=== PATIENT | female | born 1950 | race Caucasian/White ===

== ENCOUNTER → 2017-08-20 | Outpatient (CLI) | payer BC ==
[~2017-08-20] MED LIST: LOSA50TA36 PO
[2017-08-20 19:07] LABS: BASOPHILS % (AUTO) 0 % (0-10); EOSINOPHILS % (AUTO) 0 % (0-10); HEMATOCRIT 43 % (35-52); HEMOGLOBIN 15.1 G/DL (11.5-16.0); LYMPHOCYTES # (AUTO) 1.3 X 10^3 (1.0-4.0); LYMPHOCYTES % (AUTO) 21 % (12-44); MEAN CORPUSCULAR HEMOGLOBIN 30 PG (25-34); MEAN CORPUSCULAR HGB CONC 35 G/DL (32-36); MEAN CORPUSCULAR VOLUME 87 FL (80-99); MEAN PLATELET VOLUME 12.6 FL (7.4-10.4); MONOCYTES # (AUTO) 0.3 X 10^3 (0.0-1.0); MONOCYTES % (AUTO) 5 % (0-12); NEUTROPHILS # (AUTO) 4.4 X 10^3 (1.8-7.8); NEUTROPHILS % (AUTO) 74 % (42-75); PLATELET COUNT 171 10^3/uL (130-400); RED BLOOD COUNT 4.98 10^6/uL (4.35-5.85); RED CELL DISTRIBUTION WIDTH 13.4 % (10.0-14.5)
[2017-08-20 19:25] LABS: ALANINE AMINOTRANSFERASE 20 U/L (0-55); ALBUMIN 4.7 GM/DL (3.2-4.5); ALKALINE PHOSPHATASE 105 U/L (40-136); BILIRUBIN,TOTAL 0.8 MG/DL (0.1-1.0); BUN/CREATININE RATIO 20; CALCIUM 9.7 MG/DL (8.5-10.1); CARBON DIOXIDE 24 MMOL/L (21-32); CHLORIDE 108 MMOL/L (98-107); CREATININE SERUM 0.71 MG/DL (0.60-1.30); GFR ESTIMATED > 60; GLUCOSE 129 MG/DL (70-105); POTASSIUM 3.6 MMOL/L (3.6-5.0); SODIUM 143 MMOL/L (135-145)
== END ==
LOC: LABNPT 19:01
PROVIDERS: ATTEND Nurse Practitioner Family
DX: R31.9 Hematuria, unspecified (principal); R42 Dizziness and giddiness; R11.0 Nausea; R53.83 Other fatigue; R25.1 Tremor, unspecified
CPT/HCPCS: 80053; 85025; 86141; 87088

== ENCOUNTER 2017-09-01 10:37 | Outpatient (RCR) | payer BC | END 2017-11-03 15:04 | disposition home or self-care (01) | DX: R42 Dizziness and giddiness (principal) ==

== ENCOUNTER 2018-10-31 15:11 | Outpatient (RCR) | payer BC ==
[~2018-10-31 15:11] MED LIST changes: -LOSA50TA36 PO; +LOSA50TA63 PO
== END 2018-12-23 09:06 | disposition home or self-care (01) ==
PROVIDERS: ATTEND Orthopaedic Surgery
DX: Z47.1 Aftercare following joint replacement surgery (principal); Z96.642 Presence of left artificial hip joint

== ENCOUNTER → 2018-12-02 | Outpatient (CLI) | payer BC ==
--- NOTE | 2018-12-02 17:23 | Diagnostic Imaging Report ---
Exam: CT left hip without contrast. Date: December 02, 2018. Indication: 68-year-old female, left hip pain. History of prior hip arthroplasty. Comparison: CT pelvis, December 04, 2008. Technique: Axial CT images at the level of the left hip were obtained without contrast. Coronal and sagittal reformats were obtained and provided. Findings: There is a left total hip prosthesis. The complete inferior aspect of the femoral stem of the prosthesis has not been included in the [id number]-[id number]-[id number] of imaging. This is not proper protocol and the complete extent of the femoral stem should be in the included [id number]. There is no identified periprosthetic lucency adjacent to the imaged portions of the hardware. There is no identified acute fracture. There are mild left sacroiliac degenerative changes. There is severe disc height loss at L5-S1. There are bilateral L5-S1 facet degenerative changes. There is edema within the anterior subcutaneous tissues of the left thigh on axial image 158 and adjacent sequential images. Recommend correlation for recent procedural changes. There is no well-demarcated drainable fluid collection. There is no identified aggressive bone lesion. There is chondrocalcinosis. Impression: 1. No identified acute fracture. 2. No identified complication of the partially imaged left total hip prosthesis. The inferior extent of the femoral stem has not been included in the eplmy-cw-eall of imaging. 3. Subcutaneous edema in the left anterior thigh which is nonspecific. Recommend correlation for potential recent procedural changes. No well-demarcated focal fluid collection. 4. Advanced disc and facet degenerative changes at L5-S1. Dictated by: Dictated on workstation # [id number]
== END ==
LOC: RAD 15:19
PROVIDERS: ATTEND Orthopaedic Surgery
DX: M47.817 Spondylosis without myelopathy or radiculopathy, lumbosacral region (principal); M25.552 Pain in left hip; Z96.642 Presence of left artificial hip joint
CPT/HCPCS: 73700

== ENCOUNTER → 2019-01-17 | Outpatient (CLI) | payer BC | LOC: RAD 09:57 | PROVIDERS: ATTEND Family Medicine | DX: M85.89 Other specified disorders of bone density and structure, multiple sites (principal); Z53.8 Procedure and treatment not carried out for other reasons ==

== ENCOUNTER → 2021-01-02 | Outpatient (CLI) | payer BC ==
[~2021-01-02] MED LIST changes: +CATHETER FLUSH 10 ML SYR IV PRN; +HOLD METFORMIN - RECEIVED CONTRAST 20 ML VIAL IV SCH; +IOHEXOL 350 MG/ML 100 ML (OMNIPAQUE 350) VIAL IV ONE; +NS 100 ML (IVPB) BAG IV ONE
--- NOTE | 2021-01-02 10:46 | Diagnostic Imaging Report ---
EXAMINATION: CT abdomen and pelvis with intravenous contrast. TECHNIQUE: Multiple contiguous axial images were obtained through the abdomen and pelvis after the uneventful administration of intravenous contrast. All CT scans use one or more of the following dose optimizing techniques: automated exposure control, MA and/or KvP adjustment based on patient size and exam type or iterative reconstruction. HISTORY: Melanoma. COMPARISON: None available. FINDINGS: Limited views of the lower thorax are unremarkable. The liver is normal without focal lesion. There is no biliary ductal dilation. Gallbladder is normal. Pancreas is normal. Spleen is normal. Adrenal glands are normal. Simple cysts are seen in left kidney suspicious renal lesions There is no hydronephrosis. Urinary bladder is normal. Visualized bowel is normal in caliber without obstruction or inflammation. No free fluid or air. No abdominal or pelvic lymphadenopathy. Aorta is normal in caliber without aneurysm. There are no suspicious osseous lesions. IMPRESSION: 1. There is a subcutaneous stranding and a small focus of gas in the right thigh which may be related to recent surgery. There have been hip arthroplasties bilaterally. Dictated by: Dictated on workstation # [id number]
== END ==
LOC: RAD 09:03
PROVIDERS: ATTEND Physician Assistant
DX: R11.0 Nausea (principal); R10.30 Lower abdominal pain, unspecified; K92.1 Melena; I10 Essential (primary) hypertension; Z96.643 Presence of artificial hip joint, bilateral
CPT/HCPCS: 74177

== ENCOUNTER 2021-04-01 15:08 | Outpatient (RCR) | payer BC ==
[~2021-04-01 15:08] MED LIST changes: -CATHETER FLUSH 10 ML SYR IV PRN; -HOLD METFORMIN - RECEIVED CONTRAST 20 ML VIAL IV SCH; -IOHEXOL 350 MG/ML 100 ML (OMNIPAQUE 350) VIAL IV ONE; -NS 100 ML (IVPB) BAG IV ONE
== END 2021-04-04 | disposition home or self-care (01) ==
PROVIDERS: ATTEND Orthopaedic Surgery
DX: Z47.1 Aftercare following joint replacement surgery (principal); I10 Essential (primary) hypertension; Z96.643 Presence of artificial hip joint, bilateral

== ENCOUNTER 2021-10-01 13:44 | Outpatient (RCR) | payer BC | END 2021-10-02 | PROVIDERS: ATTEND Family Medicine | DX: M72.2 Plantar fascial fibromatosis (principal) ==

== ENCOUNTER 2021-10-21 14:30 | Outpatient (RCR) | payer BC | END 2021-11-02 | disposition home or self-care (01) | PROVIDERS: ATTEND Family Medicine | DX: M72.2 Plantar fascial fibromatosis (principal); I10 Essential (primary) hypertension ==